=== PATIENT | female | born 1990 | race Caucasian/White ===

== ENCOUNTER 2017-09-19 15:31 | Emergency (ER) | payer SELFPAY ==
[2017-09-19 15:34] VITALS: BP 129/65; BMI 24.1
--- NOTE | 2017-09-19 15:47 | DR.GENAD ---
HPI - PCP Primary Care Physician: LISA - HPI Comment HPI Comment: GETTING BIG. NO DRAINAGE OR FEVER. - Complaint/Symptoms Chief Complaint Doctors Comments: INFECTED PUMP IN FRONT OF RT EAR TIMES 3 DAYS. Chief Complaint:: PATIENT HAS AN INFECTED BUMP IN FRONT OF HER RIGHT EAR. SHE STATED THAT IT HAS BEEN THERE FOR 3 DAYS. - Nurses notes reviewed Nurses Notes Review: Yes - Source History Provided: Patient - Mode of Arrival Mode of Arrival: Ambulatory - Timing Onset of Chief Complaint: 09/16/17 - Duration Duration: Constant Duration: Days - Severity Severity: Moderate PMH - PMH Past Medical History: No Past Surgical History: No - Family History History of Family Medical Conditions: No - Social History Does patient currently use any type of tobacco product: Yes Have you used tobacco products in the last 12 months: Yes Type of Tobacco Use: Cigarettes Does any household member use tobacco: No Alcohol Use: Rarely Do you use any recreational Drugs:: No Lives With: Family Lives Where: Home - infectious screening In the last 2 months have you had wt loss of >10#?: NO Have you had fever, night sweats or hemotysis?: No Have you traveled outside the country in the last 6 months?: No Isolation: Standard ROS - Review of Systems Constitutional: No Symptoms Reported Eyes: No Symptoms Reported ENTM: Ear Pain Respiratoy: No Symptoms Reported Cardiovascular: No Symptoms Reported Gastrointestinal/Abdominal: No Symptoms Reported Genitourinary: No Symptoms Reported Neurological: No Symptoms Reported Musculoskeletal: No Symptoms Reported Integumentary: Change in Color, Lesions (INFRONT OF RT EAR.) Hematologic/Lymphatic: No Symptoms Reported Endocrine: No Symptoms Reported All Other Systems: Reviewed and Negative PE - Vital Signs Vitals: Temperature 98.1 F Pulse Rate 105 Respiratory Rate 20 Blood Pressure 129/65 O2 Sat by Pulse Oximetry 100 - General Limitations: No Limitations General Appearance: Alert - Head Head Exam: Normal Inspection - Eyes Eye exam: Normal Appearance - ENT ENT Exam: Normal External Ear Exam External Ear Exam: Normal External Inspection TM/Canal Exam: Bilateral Normal Nose Exam: Normal Nose Exam Mouth Exam: Normal Inspection Throat Exam: Normal Inspection - Neck Neck Exam: Trachea Midline. negative: Tenderness, Meningismus, Lymphadenopathy - Chest Chest Inspection: Symmetric Chest Wall Rise - Respiratory Respiratory Exam: Normal Lung Sounds Bilat Respiratory Exam: Bilateral Clear to Auscultation - Cardiovascular Cardiovascular Exam: Regular Rate, Normal Rhythm, Normal Heart Sounds - Abdominal Exam Abdominal Exam: Normal Bowel Sounds, Soft, Tenderness - Extremities Extremities Exam: Normal Inspection - Back Back Exam: Normal Inspection - Neurologic Neurological Exam: Alert, Oriented X3 - Psychiatric Psychiatric Exam: Normal Affect, Normal Mood - Skin Skin Exam: Normal Color MDM - Differential Diagnosis Differential Diagnosis: ABSCESS, CELLULITIS Course - Treatment Treatment: SEE ORDERS. - Education/Counseling Education/Counseling: Patient, Education Educated On: Diagnosis, Needs for Follow Up ROR - Labs Reviewed Laboratory: 09/19/17 16:10 Face Gram Stain - Final 09/19/17 16:10 Face Wound Culture - Preliminary Procedures - Incision and Drainage Blade Size: 11 I & D Procedure: betadine prep Progress: I&D DONE AND SMALL PUS DRAINED - Diagnosis Discharge Problem: Cellulitis, Abscess - Discharge Plan Disposition: HOME, SELF-CARE Condition: Stable Prescriptions: Ibuprofen [MOTRIN TAB 600 MG *] 600 mg PO TID PRN #30 tab PRN Reason: Pain/Inflammation Sulfamethoxazole-Trimethoprim [BACTRIM DS TAB 800/160 MG *] 1 tab PO BID #20 tab - Follow ups/Referrals Follow ups/Referrals: SAM GONZALEZ [Primary Care Provider] - 3 days - Instructions Instructions: Skin Abscess, [id number], Cellulitis, Adult, [id number] Additional Instructions: RETURN TO ED IF WORSE.
[2017-09-19] MEDS ORDERED: MOTRIN TAB 800 MG PO ONE ×2 (16:17→16:21)
[2017-09-19] MEDS ORDERED: BACTRIM DS TAB PO ONE ×2 (16:17→16:21)
== END 2017-09-19 16:41 | disposition home or self-care (01) ==
LOC: ER 15:38
PROC: 0W923ZZ Drainage of Face, Percutaneous Approach (ICD-10-PCS; principal; 2017-09-19)
DX: L02.01 Cutaneous abscess of face (principal); L03.211 Cellulitis of face; B95.62 Methicillin resistant Staphylococcus aureus infection as the cause of diseases classified elsewhere
CPT/HCPCS: 10060; 87070; 87075; 87077; 87186; 87205; 99282